=== PATIENT | female | born 1975 | race Hispanic/Latino ===

== ENCOUNTER 2018-04-14 17:53 | Inpatient (IN) | payer MEDICAID, OTHER ==
[~2018-04-14] VITALS: Ht 175.3 cm; Wt 105.2 kg
[2018-04-14] MEDS ORDERED: LACTATED RINGERS 1000ML 1,000 ML IV PRN (19:57)
[2018-04-14 20:39] LABS: APPEARANCE,URINE Cloudy (CLEAR); BILIRUBIN,URINE Negative (NEGATIVE); COLOR,URINE Dark Yellow (YELLOW); GLUCOSE, URINE (UA) Negative (NEGATIVE); KETONES,URINE 15 mg/dL (NEGATIVE); LEUKOCYTE ESTERASE ,URINE Small (NEGATIVE); NITRATE,URINE Negative (NEGATIVE); OCCULT BLOOD,URINE Large (NEGATIVE); PH,URINE 5.5 (5.0-8.0); PROTEIN,URINE Trace (NEGATIVE)
[2018-04-14 21:19] LABS: BACTERIA,URINE Few /HPF (None Seen); SQUAMOUS EPITHELIAL CELL,UR 50-100 /HPF (0-2)
[2018-04-14 21:33] LABS: HEMATOCRIT 36.8 % (36-48); MEAN CORPUSCULAR HEMOGLOBIN 32.3 pg (27.0-33.0); MEAN CORPUSCULAR HGB CONC 34.6 g/dL (32.0-36.0); MEAN CORPUSCULAR VOLUME 93.4 fL (79-99); PLATELET COUNT (AUTO) 252 K/uL (130-400); RED BLOOD CELL COUNT(AUTO) 3.94 MIL/uL (4.00-5.50); RED CELL DISTRIBUTION WIDTH 15.2 % (11.0-15.5); WHITE BLOOD COUNT (AUTO) 7.9 K/uL (4.8-10.8)
[2018-04-15] MEDS ORDERED: OXYTOCIN 10 USP UNITS/ML ONE ×2 (00:10→07:27)
[2018-04-15] MEDS ORDERED: LACTATED RINGERS 1000ML 1,000 ML IV ONE (00:10)
[2018-04-15] MEDS ORDERED: BENZOCAINE/LANOLIN/ALOE VERA 60 ML AEROSOL TP PRN (02:30)
[2018-04-15] MEDS ORDERED: LANOLIN 30GM OINTMENT TP PRN (02:30)
[2018-04-15] MEDS ORDERED: OXYTOCIN-LR 20 UNITS/1000 ML 1,000 ML IV SCH (02:30)
[2018-04-15] MEDS ORDERED: DIPH,PERTUSS(ACELL),TET VAC/PF 0.5 ML VIAL IM PRN (02:30)
[2018-04-15] MEDS ORDERED: WITCH HAZEL 1 PAD TP PRN (02:30)
[2018-04-15] MEDS ORDERED: MEASLES/MUMPS/RUBELLA VACCINE, LIVE 0.5 ML/VIAL SQ PRN (02:30)
[2018-04-15] MEDS ORDERED: ACETAMINOPHEN 325 MG TAB PO PRN (02:30)
[2018-04-15] MEDS ORDERED: OXYTOCIN 10 USP UNITS/ML 20 UNIT in LACTATED RINGERS 1000ML 1,000 ML IV SCH (03:00)
[2018-04-15 03:18] VITALS: BP 126/66
[2018-04-15] MEDS ORDERED: PREN1TAB89 PO (03:35)
[2018-04-15 07:27] VITALS: BP 112/60
[2018-04-15] MEDS: DOCUSATE SODIUM 100 MG CAP PO SCH ×2 (09:46→21:12)
[2018-04-15] MEDS: IBUPROFEN 600 MG TABLET PO PRN ×2 (09:47→21:13)
[2018-04-15 11:48] VITALS: BP 129/74
[2018-04-15 16:04] VITALS: BP 117/64
[2018-04-15 20:03] VITALS: BP 127/80
[2018-04-15 23:15] VITALS: BP 128/75
[2018-04-16 03:24] VITALS: BP 120/74
[2018-04-16 06:30] LABS: HEMATOCRIT 32.3 % (36-48); MEAN CORPUSCULAR HGB CONC 34.7 g/dL (32.0-36.0); PLATELET COUNT (AUTO) 201 K/uL (130-400); RED CELL DISTRIBUTION WIDTH 15.8 % (11.0-15.5); WHITE BLOOD COUNT (AUTO) 6.7 K/uL (4.8-10.8)
[2018-04-16 07:22] VITALS: BP 121/68
[2018-04-16 08:22] LABS: HEPATITIS Bs ANTIGEN SCREEN P Negative (Negative)
[2018-04-16] MEDS: DOCUSATE SODIUM 100 MG CAP PO SCH ×2 (08:22→21:07)
[2018-04-16] MEDS: IBUPROFEN 600 MG TABLET PO PRN ×2 (08:26→16:31)
[2018-04-16 11:34] VITALS: BP 142/83
[2018-04-16 16:15] VITALS: BP 142/77
[2018-04-16 19:32] VITALS: BP 134/74
[2018-04-16 23:00] VITALS: BP 143/68
[2018-04-17 03:17] VITALS: BP 138/76
[2018-04-17 07:29] VITALS: BP 135/72
[2018-04-17] MEDS: DOCUSATE SODIUM 100 MG CAP PO SCH (08:44)
[2018-04-17] MEDS: IBUPROFEN 600 MG TABLET PO PRN (08:46)
[2018-04-17 11:21] VITALS: BP 138/76
[2018-04-17 15:37] VITALS: BP 137/84
== END 2018-04-17 18:25 | disposition home or self-care (01) | DRG 775 ==
LOC: LDH 18:05 → WSH 04-15 03:15
PROVIDERS: ADMIT Obstetrics & Gynecology; ATTEND Obstetrics & Gynecology
PROC: 10E0XZZ Delivery of Products of Conception, External Approach (ICD-10-PCS; principal; 2018-04-15)
PROC: 3E0234Z Introduction of Serum, Toxoid and Vaccine into Muscle, Percutaneous Approach (ICD-10-PCS; 2018-04-15)
PROC: 3E0134Z Introduction of Serum, Toxoid and Vaccine into Subcutaneous Tissue, Percutaneous Approach (ICD-10-PCS; 2018-04-15)
DX: O80 Encounter for full-term uncomplicated delivery (principal); O09.523 Supervision of elderly multigravida, third trimester; Z37.0 Single live birth; Z3A.39 39 weeks gestation of pregnancy; Z23 Encounter for immunization
CPT/HCPCS: 36415; 81001; 85027; 86592; 86850; 86900; 86901; 87340; J2590; J7120